=== PATIENT | male | born 1965 | race Caucasian/White ===

== ENCOUNTER 2018-07-18 16:59 | Observation (INO) ==
[2018-07-19 03:58] VITALS: O2SAT 98
[2018-07-19 07:05] LABS: Baso # (Auto) 0.1 th/mm3 (0.0-0.2); Baso % (Auto) 0.8 % (0.0-2.0); Eos # (Auto) 0.1 th/mm3 (0.0-0.4); Eos % (Auto) 1.8 % (0.0-4.0); Hematocrit 37.5 % (39.0-51.0); Lymph # (Auto) 1.5 th/mm3 (1.0-4.8); Lymph % (Auto) 22.2 % (9.0-44.0); Mean Corpuscular HGB Conc 34.7 % (32.0-36.0); Mean Corpuscular Hemoglobin 30.6 pg (27.0-34.0); Mean Corpuscular Volume 88.3 fL (80.0-100.0); Mean Platelet Volume 8.7 fL (7.0-11.0); Mono # (Auto) 0.7 th/mm3 (0.0-0.9); Mono % (Auto) 9.5 % (0.0-8.0); Neut # (Auto) 4.6 th/mm3 (1.8-7.7); Neut % (Auto) 65.7 % (16.0-70.0); Platelet Count 227 th/mm3 (150-450); Red Blood Count 4.24 mil/mm3 (4.50-5.90); Red Cell Distribution Width 12.1 % (11.6-17.2); White Blood Count 6.9 th/mm3 (4.0-11.0)
[2018-07-19 07:54] VITALS: BP 121/72; PULSE 72; RESP 16; TEMP 98.5
[2018-07-19] MEDS ORDERED: Docusate Sodium 100 MG Capsule PO SCH (09:00)
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
== END 2018-07-19 12:00 | disposition home or self-care (01) ==
LOC: NEDDLT 23:20 → NEPFCDU 23:20 → NEDH 07-19 09:57
PROVIDERS: ADMIT Surgery; ATTEND Surgery